=== PATIENT | male | born 1970 | race Asian ===

== ENCOUNTER 2023-10-26 20:15 | Emergency (ER) | payer OTHER ==
[2023-10-26 20:22] VITALS: BP 115/72; PULSE 63; RESP 20; TEMP 97.3; BMI 21.9
[2023-10-26] MEDS ORDERED: ACETAMINOPHEN 325 MG TABLET (FP) PO ONE (21:23)
[2023-10-26] MEDS ORDERED: ACETAMINOPHEN 325 MG TABLET (FP) ONE (21:29)
[2023-10-26 21:37] LABS: BASO % 0.8 % (0-2.0); EOS % 2.5 % (0-4.5); HEMATOCRIT 43.9 % (35.4-49); HEMOGLOBIN 14.7 GM/dL (11.7-16.9); LYMPH % 33.9 % (8-40); MCH 29.9 pg (25.7-33.7); MCHC 33.5 g/dl (32.0-35.9); MEAN CELL VOLUME 89.1 fl (80-96); MEAN PLT VOLUME 8.7 fl (7.5-11.1); MONO % 9.2 % (3.8-10.2); NEUT % 53.6 % (42.8-82.8); PLATELET COUNT 212 10^3/uL (134-434); RBC 4.93 M/mm3 (4.00-5.60); RDW 13.7 % (11.9-15.9); WHITE BLOOD COUNT 6.6 K/mm3 (4.0-10.0)
[2023-10-26 22:12] LABS: POTASSIUM 4.5 mmol/L (3.5-5.1)
[2023-10-26 22:14] LABS: BLOOD UREA NITROGEN 22.4 mg/dL (7-18); CALCIUM 8.5 mg/dL (8.5-10.1)
[2023-10-26 22:15] LABS: ALBUMIN 3.6 g/dl (3.4-5.0)
[2023-10-26 22:18] LABS: CREATININE 0.8 mg/dL (0.55-1.3)
[2023-10-26 22:19] LABS: BILIRUBIN,TOTAL 0.4 mg/dL (0.2-1)
== END 2023-10-26 22:57 | disposition home or self-care (01) ==
LOC: JER 20:15
DX: R07.89 Other chest pain (principal); S29.9XXA Unspecified injury of thorax, initial encounter; X50.0XXA Overexertion from strenuous movement or load, initial encounter
CPT/HCPCS: 36415; 71046-TC-FY; 80053; 84484; 85025; 93005; 93010; 99285-25